=== PATIENT | male | born 2000 | race Hispanic/Latino ===

== ENCOUNTER 2018-06-18 01:23 | Emergency (ER) | payer MEDICAID, OTHER | END 2018-06-18 02:05 | disposition home or self-care (01) | LOC: EDH 01:23 | DX: S10.15XA Superficial foreign body of throat, initial encounter (principal); X58.XXXA Exposure to other specified factors, initial encounter; Y93.89 Activity, other specified; Y92.098 Other place in other non-institutional residence as the place of occurrence of the external cause; Y99.8 Other external cause status ==